=== PATIENT | male | born 2000 | race African-American/Black ===

== ENCOUNTER 2021-05-29 16:51 | Emergency (ER) | payer BC ==
[2021-05-29] MEDS ORDERED: Dexamethasone 10 MG/ML VIAL ONE (18:27)
== END 2021-05-29 19:00 | disposition home or self-care (01) ==
LOC: CSHERS 16:51
DX: J02.9 Acute pharyngitis, unspecified (principal); F17.210 Nicotine dependence, cigarettes, uncomplicated
CPT/HCPCS: 87070; 99283; J1100